=== PATIENT | female | born 1995 | race Caucasian/White ===

== ENCOUNTER 2025-01-09 09:39 | Emergency (ER) | payer OTHER, SELFPAY ==
[2025-01-09 09:47] VITALS: BP 134/90; PULSE 98; TEMP 37.1; O2SAT 100; BMI 29.2
--- NOTE | 2025-01-09 10:03 | CT_ITS ---
The [address] [address] Patient Name: ANGEL SUNG MRN: [id number] date: 1995 Sex: F Assigned Patient Location: ER Current Patient Location: ER Accession/Order Number: [id number] Exam Date: 01/09/2025 10:15 Report Date: 01/09/2025 10:50 At the request of: JOSE DANIEL RIVERA MD Procedure: CT head/brain wo con CT head/brain wo con 01/09/2025 10:18 AM SIGNS AND SYMPTOMS: ^VAZQUEZ TECHNIQUE:Multi-detector CT axial slices of the brain were obtained without IV contrast. CT was performed with one or more of the following dose reduction techniques: Automated exposure control, adjustment of the mA and/or kV according to patient size, or use of iterative reconstruction technique. COMPARISON: None. FINDINGS: There is no shift of the midline structures, acute intracranial bleeding, mass effects, or evidence of acute ischemia. The ventricular system is normal in size. The brainstem and the cerebellum are unremarkable. The visualized intraorbital contents, the visualized paranasal sinuses, and the infratemporal soft tissues show no acute abnormality. The osseous structures in the skull base and the calvarium show no abnormality. CT/CT head/brain wo con IMPRESSION: Normal noncontrasted CT brain. Impression dictated by: Honorio Cordero M.D. 01/09/2025 10:50 AM Dictation Location: [place] [address] Electronically authenticated by: [id number] Y Date: 01/09/2025 10:50
--- NOTE | 2025-01-09 10:04 | ED_ITS ---
HPI HPI - General Adult General Chief complaint: Headache Stated complaint: MIGRAINE FEVER Time Seen by Provider: 01/09/25 09:41 Source: patient Mode of arrival: walk-in Limitations: no limitations History of Present Illness HPI narrative: 29-year-old female presents for headache. It is frontal and bitemporal and behind her eyes. She has had it for about 2-1/2 days. She states she had a temperature of 100.3 at home. No neck pain or stiffness. No trauma. She does not get frequent headaches. No localized weakness. It is moderate to severe and continuous. Related Data Previous Rx's ?Medication ?Instructions ?Recorded miranwerux-begtuqnkejgnr-jsttewui 1 cap PO Q6H PRN melody n 5 days #20 01/09/25 50 mg-300 mg-40 mg capsule caps (Fioricet) Allergies Allergy/AdvReac Type Severity Reaction Status Date / Time No Known Drug Allergies Allergy Verified 01/09/25 09:46 Opioid HPI Opioid Management Most Recent Opioid Data: Last Pain Scale 2 Today, 11:15 Last ED Pain Assessment Today, 11:15 Last MAR Pain Assessment Today, 10:21 Review of Systems ROS Narrative A ten point review of systems is negative except as noted above. PFSH PFSH Social History Little interest or pleasure in doing things: not at all Feeling down, depressed, or hopeless: not at all Exam Narrative Exam Narrative: Nurses note and vital signs reviewed and patient is not hypoxic. General:The patient appears in no acute distress. She is laying on the bed with the lights turned down and her eyes closed. Skin:Warm, dry, no pallor noted.There is no rash noted. Head:Normocephalic, atraumatic; neck supple, no nuchal rigidity. Eye: Normal conjunctiva, no drainage, EOMI. PERRL Ears, Nose, Mouth, and Throat: oral mucosa is moist. Nares patent. Cardiovascular:Regular Rate and Rhythm Respiratory:Patient is in no distress, no accessory muscle use, lungs are clear to auscultation, no wheezing, rales or rhonchi Back:non-tender GI: Soft and nontender Musculoskeletal: The patient has no evidence of calf tenderness, no pitting edema, symmetrical pulses noted bilaterally Neurological: Awake alert and oriented. Upper lower extremity strength intact and symmetric Psychiatric:Cooperative Constitutional Vital Signs, click to edit/add: Last Vital Signs Temp 98.7 F 01/09/25 09:47 Pulse 82 01/09/25 11:14 Resp 16 01/09/25 11:14 BP 114/81 01/09/25 11:14 Pulse Ox 100 01/09/25 11:14 O2 Del Method Room Air 01/09/25 11:14 Course Vital Signs Vital signs: Vital Signs Temperature 98.7 F 01/09/25 09:47 Pulse Rate 98 H 01/09/25 09:47 Respiratory Rate 16 01/09/25 09:47 Blood Pressure 134/90 01/09/25 09:47 Pulse Oximetry 100 01/09/25 09:47 Oxygen Delivery Method Room Air 01/09/25 09:47 Temperature 98.7 F 01/09/25 09:47 Pulse Rate 82 01/09/25 11:14 Respiratory Rate 16 01/09/25 11:14 Blood Pressure 114/81 01/09/25 11:14 Pulse Oximetry 100 01/09/25 11:14 Oxygen Delivery Method Room Air 01/09/25 11:14 Medical Decision Making MDM Narrative Medical decision making narrative: Her workup including CT brain is negative. WBC normal. She was given IV Toradol and Benadryl and Solu-Medrol. She feels much better now. She is sitting up and looking around the room and continues to have no nuchal rigidity. Gay no clinical suspicion at this point of meningitis. Treatment diagnosis and follow-up were discussed with the patient. Differential Diagnosis Differential Diagnosis: Headache, sinusitis, meningitis, intracranial hemorrhage Lab Data Lab results reviewed: Yes I reviewed the patient's lab results Labs: Lab Results 01/09/25 Range/Units 10:10 WBC 6.2 (4.0-11.0) 10^3/uL RBC 4.94 (4.20-5.40) 10^6/uL Hgb 15.2 (12.0-16.0) g/dL Hct 44.3 (36.0-48.0) % MCV 89.7 (81.0-99.0) fL MCH 30.8 (26.7-34.0) pg MCHC 34.3 (29.9-35.2) g/dL RDW 11.7 (11.0-15.0) % Plt Count 271 (150-450) 10^3/uL MPV 8.6 L (9.5-13.5) fL Neut % (Auto) Not Reportable Lymph % (Auto) Not Reportable Caroline % (Auto) Not Reportable Eos % (Auto) Not Reportable Baso % (Auto) Not Reportable Neut # (Auto) Not Reportable Lymph # (Auto) Not Reportable Caroline # (Auto) Not Reportable Eos # (Auto) Not Reportable Baso # (Auto) Not Reportable Abs Immat Gran (auto) Not Reportable Seg Neuts % (Manual) 57.0 (43.0-75.0) Lymphocytes % (Manual) 28.0 (20.5-60.0) % Atypical Lymphs % (Man) 5.0 % Monocytes % (Manual) 9.0 (1.7-12.0) % Eosinophils % (Manual) 1.0 (0.9-7.0) % Basophils % (Manual) 0.0 L (0.2-2.0) % Imm/Tot Granulo (auto) Not Reportable Neutrophils # (Manual) 3.53 (1.4-6.5) 10^3/uL Lymphocytes # (Manual) 1.73 (1.20-3.80) 10^3/uL Abs Atypical Lymphs Man 0.31 Monocytes # (Manual) 0.55 (0.30-0.80) 10^3/uL Eosinophils # (Manual) 0.06 (0.00-0.70) 10^3/uL Basophils # (Manual) 0.00 (0.00-0.10) 10^3/uL Sodium 139 (136-145) mmol/L Potassium 4.0 (3.5-5.1) mmol/L Chloride 103 (98-107) mmol/L Carbon Dioxide 27.8 (21.0-32.0) mmol/L Anion Gap 12.2 BUN 16.0 (7.0-18.0) mg/dL Creatinine 0.62 (0.55-1.02) mg/dL Est GFR ( Amer) >60 (>=60 mL/min/1.73m^2) Est GFR (Non-Af Amer) >60 (>=60 mL/min/1.73m^2) BUN/Creatinine Ratio 25.8 Glucose 100 (74-106) mg/dL Calcium 9.2 (8.5-10.1) mg/dL Imaging Data CT scan - head: Radiologist's impression: ITS Impressions Head CT 01/09/25 10:03 IMPRESSION: Normal noncontrasted CT brain. Impression dictated by: Honorio Cordero M.D. 01/09/2025 10:50 AM Dictation Location: [facility] Electronically authenticated by: [id number] Y Date: 01/09/2025 10:50 Discharge Plan Discharge Chief Complaint: Headache Clinical Impression: Headache Patient Disposition: Home, Self-Care Time of Disposition Decision: 11:26 Condition: Good Mode of Transportation: Private Vehicle Prescriptions / Home Meds: New rhmfphgfgb-qxehcrycoweyp-nqrz [Fioricet] 50-300-40 mg capsule 1 cap PO Q6H PRN (Reason: pain) 5 Days Qty: 20 0RF Print Language: Italian Instructions: Acute Headache (ED) Referrals: JAE LOZANO [Primary Care Provider, Family Practice] - 1 week
[2025-01-09 10:15] LABS: Hematocrit 44.3 % (36.0-48.0); Hemoglobin 15.2 g/dL (12.0-16.0); Mean Corpuscular HGB Conc 34.3 g/dL (29.9-35.2); Mean Corpuscular Hemoglobin 30.8 pg (26.7-34.0); Mean Corpuscular Volume 89.7 fL (81.0-99.0); Platelet Count 271 10^3/uL (150-450); Red Blood Count 4.94 10^6/uL (4.20-5.40); White Blood Count 6.2 10^3/uL (4.0-11.0)
[2025-01-09] MEDS: 0.9 % SODIUM CHLORIDE 1,000 ML 1000 ML IV (10:20)
[2025-01-09] MEDS: DIPHENHYDRAMINE HCL 50 MG/ML VIAL 25 MG IVP (10:21)
[2025-01-09] MEDS: KETOROLAC TROMETHAMINE 30 MG/ML VIAL IVP (10:21)
[2025-01-09] MEDS: METHYLPREDNISOLONE SOD SUCC PF 125 MG/2 ML VIAL IVP (10:21)
[2025-01-09 10:26] LABS: Anion Gap 12.2; Blood Urea Nitrogen 16.0 mg/dL (7.0-18.0); Calcium 9.2 mg/dL (8.5-10.1); Carbon Dioxide 27.8 mmol/L (21.0-32.0); Chloride 103 mmol/L (98-107); Estimated GFR (African America >60 (>=60 mL/min/1.73m^2); Estimated GFR (Non-African Ame >60 (>=60 mL/min/1.73m^2); Glucose 100 mg/dL (74-106); Potassium 4.0 mmol/L (3.5-5.1); Sodium 139 mmol/L (136-145)
[2025-01-09 10:54] LABS: Basophils Abs Manual 0.00 10^3/uL (0.00-0.10); Basophils Percent Manual 0.0 % (0.2-2.0); Eosinophils Absolute Manual 0.06 10^3/uL (0.00-0.70); Eosinophils Percent Manual 1.0 % (0.9-7.0); Lymphocytes Absolute Manual 1.73 10^3/uL (1.20-3.80); Lymphocytes Percent Manual 28.0 % (20.5-60.0); Monocytes Absolute Manual 0.55 10^3/uL (0.30-0.80); Monocytes Percent Manual 9.0 % (1.7-12.0); Segmented Neut Absolute Manual 3.53 10^3/uL (1.4-6.5); Segmented Neutrophils % Manual 57.0 (43.0-75.0)
[2025-01-09 10:55] LABS: Atypical Lymphocytes % Manual 5.0 %; Atypical Lymphocytes Abs Man 0.31
[2025-01-09 11:14] VITALS: BP 114/81; PULSE 82; O2SAT 100
== END 2025-01-09 12:01 | disposition home or self-care (01) ==
PROVIDERS: Emergency Provider Emergency Medicine; PCP Family Medicine
DX: R51.9 Headache, unspecified (principal)
CPT/HCPCS: 36415; 70450; 80048; 85007; 85025; 85027; 96374; 96375; 99284; J1200; J1885; J2919